=== PATIENT | male | born 1955 | race Caucasian/White ===

== ENCOUNTER 2020-04-01 14:01 | Emergency (ER) | payer MEDICAID ==
[2020-04-01] MEDS ORDERED: Bacitracin Oint 1 GM U/D Packet TOP ONE (14:06)
[2020-04-01] MEDS ORDERED: Lidocaine 1% with EPINEPHrine 1:100,000 50 ML MDV INJECT ONE (14:06)
[2020-04-01] MEDS ORDERED: Diphtheria,Pertussis(Acell),Tetanus Vaccine 0.5 ML SDV IM ONE (14:06)
--- NOTE | 2020-04-01 14:10 | EDM.PDOC ---
ED HPI GENERAL MEDICAL PROBLEM - General Stated Complaint: cut leg with chain saw Time Seen by Provider: 04/01/20 14:01 Source of Information: Reports: Patient History Limitations: Reports: No Limitations - History of Present Illness INITIAL COMMENTS - FREE TEXT/NARRATIVE: Gadiel is a 64 year old male, presents to the ED with left leg laceration from chain saw prior to arrival. Denies any other injuries, uncertain DT status. Nothing makes symptoms better or worse. Onset: Today, Sudden Left Leg Pain Score (Numeric/FACES): 4 - Related Data Allergies Allergy/AdvReac Type Severity Reaction Status Date / Time succinylcholine Allergy Cannot Verified 04/01/20 14:10 Remember Home Meds: Home Meds Aspirin [Halfprin] 81 mg PO DAILY 11/05/14 [History] ClonazePAM [KlonoPIN] 0.5 mg PO TID PRN 11/05/14 [History] Lisdexamfetamine [Vyvanse] 60 mg PO DAILY 11/05/14 [History] Multivitamin [Men's Multi-Vitamin] 1 each PO DAILY 11/05/14 [History] Prazosin [Minpress] 1 mg PO DAILY 11/05/14 [History] Simvastatin [Zocor] 20 mg PO BEDTIME 11/05/14 [History] buPROPion HCL [Wellbutrin SR] 450 mg PO DAILY 11/05/14 [History] ED ROS GENERAL - Review of Systems Review Of Systems: Comprehensive ROS is negative, except as noted in HPI. ED EXAM, SKIN/RASH Exam: See Below Exam Limited By: No Limitations General Appearance: Alert, WD/WN, Anxious Respiratory/Chest: No Respiratory Distress Cardiovascular: Regular Rate, Rhythm Peripheral Pulses: 2+: Dorsalis Pedis (L), Dorsalis Pedis (R) Back Exam: Normal Inspection Extremities: Normal Inspection, Normal Range of Motion, Normal Capillary Refill Neurological: Alert, Oriented, CN II-XII Intact Psychiatric: Normal Affect, Anxious Skin: Warm, Other (7 cm deep laceration to left [place], no tendon/ligamentous involvement.) Lymphatic: No Adenopathy ED SKIN PROCEDURES - Laceration/Wound Repair Left Lower Leg Appearance: Subcutaneous Distal NVT: Neuro & Vascular Intact, No Tendon Injury Anesthetic Type: Local Local Anesthesia - Lidocaine (Xylocaine): 1% with EPI Local Anesthetic Volume: Other (10) Skin Prep: Chlorhexidine (Hibiciens) Exploration/Debridement/Repair: Wound Explored, No Foreign Material Found Closed with: Sutures Lac/Wound length In cm: 7 Suture Size: 4-0 # of Sutures: 30 Suture Type: Nylon Suture Size: 4-0 # of Sutures: 5 Course - Vital Signs Last Recorded V/S: Last Vital Signs Temp 36.1 C 04/01/20 14:21 Pulse 74 04/01/20 14:21 Resp 16 04/01/20 14:21 BP 154/86 H 04/01/20 14:21 Pulse Ox 97 04/01/20 14:21 Gadiel is a 64 year old male, presents to the ED today with left leg laceration he sustained from a chain saw. Patient's DT is up to date. Suture repair as noted above, dual closure, long repair. Bacitracin and dressing applied, wound care discussed, RICE encouraged. Tylenol/Ibuprofen for pain as needed per chantelle ttle instructions. Reasons to return to the ED discussed, patient agreeable and discharged in stable condition. - Orders/Labs/Meds Orders: Active Orders 24 hr Category Date Time Status Vaccines to be Administered [RC] PER UNIT ROUTINE Care 04/01/20 14:06 Active Meds: Medications Discontinued Medications Generic Name Dose Route Start Last Admin Trade Name Az PRN Reason Stop Dose Admin Bacitracin 3 dose 04/01/20 14:06 Bacitracin Oint 1 Gm TOP 04/01/20 14:07 ONETIME ONE Diphtheria/Tetanus/Acell Pertussis 0.5 ml 04/01/20 14:06 Adacel IM 04/01/20 14:07 .ONCE ONE Lidocaine/Epinephrine 20 ml 04/01/20 14:06 Xylocaine 1% With Epinephrine 1:100,000 INJECT 04/01/20 14:07 ONETIME ONE Departure - Departure Time of Disposition: 15:30 Disposition: Home, Self-Care 01 Condition: Good Clinical Impression: Laceration - Discharge Information Instructions: Laceration Care, Adult, [id number] Additional Instructions: Keep clean and dry. You can shower, gently blot dry, no swimming or soaking until sutures are out. Have these removed in 10 days. Keep covered for 3 days, Bacitracin twice daily for 5 days. Ibuprofen 600 mg every 6 hours as needed for pain which can be alternated with Tylenol 650 mg every 4 hours as needed. Ice and elevate throughout the day. Return here with any signs of infection. Sepsis Event Note (ED) - Focused Exam Vital Signs: Vital Signs Temp Pulse Resp BP Pulse Ox 04/01/20 14:21 36.1 C 74 16 154/86 H 97 04/01/20 14:14 36.1 C 74 16 154/86 H 97 - My Orders Last 24 Hours: My Active Orders 04/01/20 14:06 Vaccines to be Administered [RC] PER UNIT ROUTINE - Assessment/Plan Last 24 Hours: My Active Orders 04/01/20 14:06 Vaccines to be Administered [RC] PER UNIT ROUTINE
[2020-04-01 14:16] VITALS: BP 154/86; PULSE 74
== END 2020-04-01 15:31 | disposition home or self-care (01) ==
LOC: JP.ED 14:01
DX: S81.812A Laceration without foreign body, left lower leg, initial encounter (principal); Z88.4 Allergy status to anesthetic agent; Z79.82 Long term (current) use of aspirin; Z79.899 Other long term (current) drug therapy; W29.3XXA Contact with powered garden and outdoor hand tools and machinery, initial encounter
CPT/HCPCS: 12002; 99283

== ENCOUNTER 2020-07-08 15:50 | Emergency (ER) | payer MEDICAID ==
[2020-07-08] MEDS ORDERED: Polyethylene Glycol 3350 Powder 17 GM Packet PO ONE (18:29)
[2020-07-08] MEDS ORDERED: Sodium Chloride 0.9% 10 ML Syringe FLUSH PRN (18:30)
--- NOTE | 2020-07-08 18:36 | EDM.PDOC ---
ED HPI GENERAL MEDICAL PROBLEM - General Chief Complaint: Gastrointestinal Problem Stated Complaint: CONSTIPATED Time Seen by Provider: 07/08/20 18:20 Source of Information: Reports: Patient, Family, Old Records History Limitations: Reports: Other (incomplete records) - History of Present Illness INITIAL COMMENTS - FREE TEXT/NARRATIVE: 64 yo male here on apparent referral from the clinic. Had been to the clinic a couple days ago for constipation. Had an X-ray that showed stool through out her bowels and a normal BMP and a CBC that showed a slight increase in his WBC ct to 15. He failed to get relief of his constipation with their recommended tx so when he called back today he was told to go to the ER. He had a colonoscopy last 10 yrs ago and a f/u study has not yet been scheduled. No fever. No abdominal pain. No dysuria. Feels like he has incomplete emptying. No black or bloody stools. Denies nausea or vomiting. Onset: Gradual Duration: Day(s):, Waxing/Waning Location: Reports: Abdomen Quality: Reports: Pressure (mild) Severity: Mild Improves with: Reports: Movement (bowel movements) Worsens with: Reports: Other (? lack of BM's) Context: Reports: Other (See HPI) Associated Symptoms: Reports: No Other Symptoms Treatments BOARD OF DIRECTORS: Reports: Other (see below) (laxative, ? which one) - Related Data Allergies Allergy/AdvReac Type Severity Reaction Status Date / Time succinylcholine Allergy Cannot Verified 04/01/20 14:10 Remember Home Meds: Home Meds Aspirin [Halfprin] 81 mg PO DAILY 11/05/14 [History] ClonazePAM [KlonoPIN] 0.5 mg PO TID PRN 11/05/14 [History] Lisdexamfetamine [Vyvanse] 60 mg PO DAILY 11/05/14 [History] Multivitamin [Men's Multi-Vitamin] 1 each PO DAILY 11/05/14 [History] Prazosin [Minpress] 1 mg PO DAILY 11/05/14 [History] Simvastatin [Zocor] 20 mg PO BEDTIME 11/05/14 [History] buPROPion HCL [Wellbutrin SR] 450 mg PO DAILY 11/05/14 [History] Past Medical History Cardiovascular History: Reports: High Cholesterol Gastrointestinal History: Reports: Chronic Constipation Genitourinary History: Reports: BPH Musculoskeletal History: Reports: Fracture Psychiatric History: Reports: Anxiety, Depression, Panic Attack - Past Surgical History GI Surgical History: Reports: Colonoscopy Male Surgical History: Reports: TURP-Transurethral Resection of Prostate Social & Family History - Tobacco Use Tobacco Use Status *Q: Former Tobacco User Years of Tobacco use: 20 Used Tobacco, but Quit: Yes Month/Year Tobacco Last Used: 1979 - Caffeine Use Caffeine Use: Reports: None - Recreational Drug Use Recreational Drug Use: No ED ROS GENERAL - Review of Systems Review Of Systems: See Below Constitutional: Reports: No Symptoms HEENT: Reports: No Symptoms Respiratory: Reports: No Symptoms Cardiovascular: Reports: No Symptoms GI/Abdominal: Reports: Constipation. Denies: Abdominal Pain, Black Stool, Bloody Stool, Diarrhea, Hematemesis, Hematochezia, Melena, Nausea, Vomiting : Reports: No Symptoms Musculoskeletal: Reports: No Symptoms Skin: Reports: No Symptoms Neurological: Reports: No Symptoms ED EXAM, GI/ABD - Physical Exam Exam: See Below Exam Limited By: No Limitations General Appearance: Alert, WD/WN, No Apparent Distress Eyes: Bilateral: Normal Appearance Ears: Normal External Exam, Normal Canal, Hearing Grossly Normal, Normal TMs Nose: Normal Inspection, No Blood Throat/Mouth: Normal Inspection, Normal Lips, Normal Oropharynx, Normal Voice, No Airway Compromise Head: Atraumatic, Normocephalic Neck: Normal Inspection Respiratory/Chest: No Respiratory Distress, Lungs Clear, Normal Breath Sounds, No Accessory Muscle Use Cardiovascular: Regular Rate, Rhythm, No Edema GI/Abdominal Exam: Normal Bowel Sounds, Soft, Non-Tender, No Distention. No: Distended, Guarding, Rigid, Rebound, Tender, Hernia Back Exam: Normal Inspection. No: CVA Tenderness (R), CVA Tenderness (L) Extremities: Normal Inspection, Normal Range of Motion, Non-Tender, No Pedal Edema Neurological: Alert, Oriented, CN II-XII Intact, Normal Cognition, No Motor/Sensory Deficits Psychiatric: Normal Affect, Normal Mood Skin Exam: Warm, Dry, Intact, Normal Color, No Rash Course - Vital Signs Last Recorded V/S: Last Vital Signs Temp 36.1 C 07/08/20 17:02 Pulse 63 07/08/20 19:39 Resp 19 07/08/20 19:39 BP 144/90 H 07/08/20 19:39 Pulse Ox 98 07/08/20 19:39 - Orders/Labs/Meds Orders: Active Orders 24 hr Category Date Time Status Bladder Scan [RC] ASDIRECTED Care 07/08/20 18:35 Active Iopamidol [Isovue-300 (61%)] Med 07/08/20 18:45 Active 100 ml IV . DIRECTED Sodium Chloride 0.9% [Normal Saline] 100 ml Med 07/08/20 18:45 Active IV ASDIRECTED Sodium Chloride 0.9% [Saline Flush] Med 07/08/20 18:30 Active 10 ml FLUSH ASDIRECTED PRN Saline Lock Insert [OM.PC] Routine Oth 07/08/20 18:30 Ordered Medication Orders Sodium Chloride (Normal Saline) 100 mls @ 3 mls/sec IV ASDIRECTED VIKA Last Admin: 07/08/20 19:20 Dose: 3 mls/sec Documented by: [email or web address] Iopamidol (Isovue-300 (61%)) 100 ml IV . DIRECTED VIKA Last Admin: 07/08/20 19:20 Dose: 100 ml Documented by: DEANA Sodium Chloride (Saline Flush) 10 ml FLUSH ASDIRECTED PRN PRN Reason: Keep Vein Open Last Admin: 07/08/20 19:20 Dose: 10 ml Documented by: DEANA Meds: Medications Generic Name Dose Route Start Last Admin Trade Name Freq PRN Reason Stop Dose Admin Sodium Chloride 100 mls @ 3 mls/sec 07/08/20 18:45 07/08/20 19:20 Normal Saline IV 3 mls/sec ASDIRECTED VIKA Administration Iopamidol 100 ml 07/08/20 18:45 07/08/20 19:20 Isovue-300 (61%) IV 100 ml . DIRECTED VIKA Administration Sodium Chloride 10 ml 07/08/20 18:30 07/08/20 19:20 Saline Flush FLUSH 10 ml ASDIRECTED PRN Administration Keep Vein Open Discontinued Medications Generic Name Dose Route Start Last Admin Trade Name Freq PRN Reason Stop Dose Admin Polyethylene Glycol 34 gm 07/08/20 18:29 07/08/20 18:47 Miralax PO 07/08/20 18:30 34 gm ONETIME ONE Administration Sodium Chloride 10 ml 07/08/20 18:41 07/08/20 18:45 Saline Flush FLUSH 07/08/20 18:42 10 ml ONETIME ONE Administration - Radiology Interpretation Free Text/Narrative:: CT abd/pelvis with IV contrast- IMPRESSION: 1. No acute intra-abdominal or pelvic abnormality. 2. Right adrenal nodule does not meet criteria for adenoma on the basis of this exam. Follow-up noncontrast CT of the abdomen or adrenal protocol CT without and with IV contrast is suggested to confirm the suspected diagnosis of adenoma. Dictated by Christophe Grant MD @ 07/08/2020 7:48:[address] Results Date: 07/08/20 - Re-Assessments/Exams Free Text/Narrative Re-Assessment/Exam: 07/08/20 19:39 post-void bladder scan was nearly 0 Departure - Departure Time of Disposition: 20:00 Disposition: Home, Self-Care 01 Condition: Good Clinical Impression: Constipation Qualifiers: Constipation type: unspecified constipation type Qualified Code(s): K59.00 - Constipation, unspecified - Discharge Information *PRESCRIPTION DRUG MONITORING PROGRAM REVIEWED*: No *COPY OF PRESCRIPTION DRUG MONITORING REPORT IN PATIENT ALEISHA: No Instructions: Constipation, Adult, Psgy-ty-Povy Referrals: Wood Stevens MD [Primary Care Provider] - Forms: ED Department Discharge Additional Instructions: Eat a high fiber diet and drink ample fluids and get regular exercise. Take a double dose of Miralax two to 3x a day until you are pretty well cleaned out, then take a dose once or twice daily to keep stools moving. Discuss with your doctor a referral for colonoscopy which you are now due for. Return as needed. Sepsis Event Note (ED) - Evaluation Sepsis Screening Result: No Definite Risk - Focused Exam Vital Signs: Vital Signs Temp Pulse Resp BP Pulse Ox 07/08/20 19:39 63 19 144/90 H 98 07/08/20 17:02 36.1 C 76 16 145/90 H 07/08/20 16:55 36.8 C 76 16 145/90 H 98 - My Orders Last 24 Hours: My Active Orders 07/08/20 18:30 Sodium Chloride 0.9% [Saline Flush] 10 ml FLUSH ASDIRECTED PRN Saline Lock Insert [OM.PC] Routine 07/08/20 18:35 Bladder Scan [RC] ASDIRECTED 07/08/20 18:45 Iopamidol [Isovue-300 (61%)] 100 ml IV . DIRECTED Sodium Chloride 0.9% [Normal Saline] 100 ml IV ASDIRECTED - Assessment/Plan Last 24 Hours: My Active Orders 07/08/20 18:30 Sodium Chloride 0.9% [Saline Flush] 10 ml FLUSH ASDIRECTED PRN Saline Lock Insert [OM.PC] Routine 07/08/20 18:35 Bladder Scan [RC] ASDIRECTED 07/08/20 18:45 Iopamidol [Isovue-300 (61%)] 100 ml IV . DIRECTED Sodium Chloride 0.9% [Normal Saline] 100 ml IV ASDIRECTED
[2020-07-08] MEDS ORDERED: Sodium Chloride 0.9% 10 ML Syringe FLUSH ONE (18:41)
[2020-07-08] MEDS ORDERED: Iopamidol 612 MG/ML 100 ML Bottle IV SCH (18:45)
[2020-07-08] MEDS ORDERED: Sodium Chloride 0.9% 100 ML IV SCH (18:45)
[2020-07-08 19:40] VITALS: BP 144/90; PULSE 63
--- NOTE | 2020-07-08 19:49 | CRLCT ---
INDICATION: Change in bowels. Elevated white blood count. TECHNIQUE: CT abdomen and pelvis acquired with 100 mL of Isovue-300 IV contrast. COMPARISON: None. FINDINGS: Lower chest: Lung bases are clear. No pleural or pericardial effusions. Liver: Unremarkable. Spleen: Unremarkable. Pancreas: Unremarkable. Gallbladder and bile ducts: Unremarkable. Kidneys: Unremarkable. Adrenal glands: 2.5 cm right adrenal nodule does not meet criteria for adenoma on the basis of this enhanced study. Left adrenal gland is unremarkable. GI tract: No bowel obstruction or focal inflammatory changes involving the GI tract. No evidence of acute appendicitis. No free air, free fluid or suspicious intra-abdominal fluid collection. Vascular structures: Mild atherosclerotic disease. No abdominal aortic aneurysm. Lymph nodes: Unremarkable. Pelvic Organs: Suspected TURP defect. Bladder as imaged is unremarkable. Bones: Mild degenerative changes of the spine and pelvis. No acute or suspicious osseous abnormality. IMPRESSION: 1. No acute intra-abdominal or pelvic abnormality. 2. Right adrenal nodule does not meet criteria for adenoma on the basis of this exam. Follow-up noncontrast CT of the abdomen or adrenal protocol CT without and with IV contrast is suggested to confirm the suspected diagnosis of adenoma. Dictated by Christophe Grant MD @ 07/08/2020 7:48:32 PM Dictated by: Christophe Grant MD @ 07/08/2020 19:48:51 (Electronically Signed)
== END 2020-07-08 20:22 | disposition home or self-care (01) ==
LOC: JP.ED 15:50
DX: K59.00 Constipation, unspecified (principal); E78.00 Pure hypercholesterolemia, unspecified; F41.9 Anxiety disorder, unspecified; F32.9 Major depressive disorder, single episode, unspecified; Z87.891 Personal history of nicotine dependence; Z88.4 Allergy status to anesthetic agent; Z79.82 Long term (current) use of aspirin
CPT/HCPCS: 74177; 99283; A9270; Q9967

== ENCOUNTER 2021-02-06 10:31 | Emergency (ER) | payer MEDICAID ==
[2021-02-06 10:51] VITALS: BP 155/89; PULSE 83
[2021-02-06] MEDS ORDERED: Acetaminophen/oxyCODONE 325-5 MG Tab PO STA (10:55)
--- NOTE | 2021-02-06 11:04 | EDM.PDOC ---
ED HPI GENERAL MEDICAL PROBLEM - General Chief Complaint: Lower Extremity Injury/Pain Stated Complaint: RT LEG ABOVE ANKLE INJURY Time Seen by Provider: 02/06/21 10:55 Source of Information: Reports: Patient History Limitations: Reports: No Limitations - History of Present Illness INITIAL COMMENTS - FREE TEXT/NARRATIVE: 65 yo male fell as he was trying to get through a zain wire fence injuring his R high ankle area. No other injuries from this fall. Onset: Today, Sudden Onset Date: 02/06/21 Duration: Minutes: Location: Reports: Lower Extremity, Right Quality: Reports: Ache Severity: Moderate Improves with: Reports: Rest Worsens with: Reports: Movement Context: Reports: Trauma Associated Symptoms: Reports: No Other Symptoms Treatments BI DEVELOPER: Reports: Other (see below) (none) Right Lower Leg Pain Score (Numeric/FACES): 7 - Related Data Allergies Allergy/AdvReac Type Severity Reaction Status Date / Time succinylcholine Allergy Cannot Verified 02/06/21 11:01 Remember Home Meds: Home Meds Aspirin [Halfprin] 81 mg PO DAILY 11/05/14 [History] ClonazePAM [KlonoPIN] 0.5 mg PO TID PRN 11/05/14 [History] Multivitamin [Men's Multi-Vitamin] 1 each PO DAILY 11/05/14 [History] Prazosin [Minpress] 1 mg PO DAILY 11/05/14 [History] Simvastatin [Zocor] 20 mg PO BEDTIME 11/05/14 [History] buPROPion HCL [Wellbutrin SR] 450 mg PO DAILY 11/05/14 [History] D-Amphetamine 1 dose PO DAILY 02/06/21 [History] Past Medical History Cardiovascular History: Reports: High Cholesterol Gastrointestinal History: Reports: Chronic Constipation Genitourinary History: Reports: BPH Musculoskeletal History: Reports: Fracture Psychiatric History: Reports: Anxiety, Depression, Panic Attack - Past Surgical History GI Surgical History: Reports: Colonoscopy Male Surgical History: Reports: TURP-Transurethral Resection of Prostate Social & Family History - Tobacco Use Tobacco Use Status *Q: Former Tobacco User Used Tobacco, but Quit: Yes Month/Year Tobacco Last Used: 1979 - Caffeine Use Caffeine Use: Reports: None Review of Systems - Review of Systems Review Of Systems: See Below Constitutional: Reports: No Symptoms Musculoskeletal: Reports: Leg Pain (R lateral leg just above the ankle) Skin: Reports: No Symptoms Neurological: Reports: No Symptoms ED EXAM, GENERAL - Physical Exam Exam: See Below Exam Limited By: No Limitations General Appearance: Alert, WD/WN, No Apparent Distress Extremities: Pedal Edema (swelling noted just proximal to the lateral malleolus on the right. ). No: Normal Inspection, Non-Tender (tender distal, lateral R leg), No Pedal Edema, Increased Warmth, Redness Neurological: Alert, Oriented, CN II-XII Intact, Normal Cognition, No Motor/Sensory Deficits Psychiatric: Normal Affect, Normal Mood Skin Exam: Warm, Dry, Intact, Normal Color, No Rash. No: Wound/Incision ED TRAUMA EXTREMITY PROCEDURES - Splinting Right Lower Extremity Pre-Procedure NV Status: Normal Post-Procedure NV Status: Normal Splint Material: Fiberglass Splint Design: Posterior Applied & Form Fitted By: Provider Provider Post-Splint Application NV Check: NV Status Normal, Good Position Complications: No Progress/Comments: Splint made with 4 inch width Orthoglass x 24 inches. 6 inch and 4 inch KEMAR wraps used. Course - Vital Signs Text/Narrative:: Orthopedics called @ 1127h Last Recorded V/S: Last Vital Signs Temp 36.7 C 02/06/21 10:58 Pulse 83 02/06/21 10:58 Resp 18 02/06/21 10:58 BP 155/89 H 02/06/21 10:58 Pulse Ox 98 02/06/21 10:58 - Orders/Labs/Meds Orders: Active Orders 24 hr Category Date Time Status Ankle Min 3V Rt [CR] Stat Exams 02/06/21 10:56 Taken Meds: Medications Discontinued Medications Generic Name Dose Route Start Last Admin Trade Name Johnq PRN Reason Stop Dose Admin Oxycodone/Acetaminophen 1 tab 02/06/21 10:55 02/06/21 11:07 Acetaminophen/Oxycodone 325-5 Mg Tab PO 02/06/21 10:56 1 tab ONETIME STA Administration - Radiology Interpretation Free Text/Narrative:: R ankle [id number] fibula fx Departure - Departure Time of Disposition: 12:00 Disposition: Home, Self-Care 01 Condition: Fair Clinical Impression: Fracture of distal end of right fibula Qualifiers: Encounter type: initial encounter Fracture type: closed Fracture morphology: other fracture Qualified Code(s): S82.831A - Other fracture of upper and lower end of right fibula, initial encounter for closed fracture - Discharge Information *PRESCRIPTION DRUG MONITORING PROGRAM REVIEWED*: Not Applicable *COPY OF PRESCRIPTION DRUG MONITORING REPORT IN PATIENT ALEISHA: Not Applicable Instructions: Ankle Fracture Referrals: Wood Stevens MD [Primary Care Provider] - Forms: ED Department Discharge Additional Instructions: Elevate your injury as high as possible to reduce/prevent swelling. Wear your splint at all times. No weight bearing with crutch walking only. Take ibuprofen and/or acetaminophen as needed for pain relief. F/U with orthopedics as scheduled. Sepsis Event Note (ED) - Focused Exam Vital Signs: Vital Signs Temp Pulse Resp BP Pulse Ox 02/06/21 10:58 36.7 C 83 18 155/89 H 98 02/06/21 10:50 36.7 C 83 18 155/89 H 98 - My Orders Last 24 Hours: My Active Orders 02/06/21 10:56 Ankle Min 3V Rt [CR] Stat - Assessment/Plan Last 24 Hours: My Active Orders 02/06/21 10:56 Ankle Min 3V Rt [CR] Stat
--- NOTE | 2021-02-06 11:49 | CR ---
Ankle Min 3V Rt CLINICAL HISTORY: Injury FINDINGS: The soft tissues are swollen laterally. There is an oblique minimally displaced fracture of the distal fibula. Tibia appears intact. Ankle mortise is anatomic. Impression: Fracture distal fibula
== END 2021-02-06 12:04 | disposition home or self-care (01) ==
LOC: JP.ED 10:31
DX: S82.831A Other fracture of upper and lower end of right fibula, initial encounter for closed fracture (principal); E78.00 Pure hypercholesterolemia, unspecified; Z79.82 Long term (current) use of aspirin; Z79.899 Other long term (current) drug therapy; Z87.891 Personal history of nicotine dependence; Z88.4 Allergy status to anesthetic agent; X58.XXXA Exposure to other specified factors, initial encounter
CPT/HCPCS: 29515; 73610; 99283; A9270

== ENCOUNTER 2022-03-19 06:58 | Day surgery (SDC) | payer MEDICAID ==
[2022-03-19] MEDS ORDERED: fentaNYL 100 MCG/2 ML SDV ONE (07:12)
[2022-03-19] MEDS ORDERED: Midazolam 1 MG/ML 2 ML SDV ONE (07:13)
[2022-03-19] MEDS ORDERED: Propofol 200 MG/20 ML SDV ONE ×2 (07:13→09:14)
[2022-03-19] MEDS ORDERED: Lactated Ringers 1,000 ML IV SCH (08:15)
[2022-03-19 10:37] VITALS: BP 125/83; PULSE 53
== END 2022-03-19 10:58 | disposition home or self-care (01) ==
LOC: JP.SDS 06:58
PROVIDERS: ATTEND Family Medicine
DX: Z12.11 Encounter for screening for malignant neoplasm of colon (principal); D12.4 Benign neoplasm of descending colon; D12.5 Benign neoplasm of sigmoid colon; K21.9 Gastro-esophageal reflux disease without esophagitis; C61 Malignant neoplasm of prostate; E78.5 Hyperlipidemia, unspecified; F41.9 Anxiety disorder, unspecified
CPT/HCPCS: 43239; 45380; J2250; J2704; J3010; J7120